=== PATIENT | female | born 1940 | race Caucasian/White ===

== ENCOUNTER → 2023-05-04 13:59 | Outpatient (REF) | payer MEDICARE, SELFPAY | LOC: DHCBS MAIN 13:59 | PROVIDERS: ATTENDING PHYSICIAN Nuclear Medicine Nuclear Cardiology; FAMILY PHYSICIAN Family Medicine | DX: I35.1 Nonrheumatic aortic (valve) insufficiency (principal) | CPT/HCPCS: 93306 ==

== ENCOUNTER → 2023-11-11 13:31 | Outpatient (REF) | payer MEDICARE, SELFPAY | LOC: RCS 13:31 | PROVIDERS: ATTENDING PHYSICIAN Nuclear Medicine Nuclear Cardiology; FAMILY PHYSICIAN Family Medicine | DX: I63.9 Cerebral infarction, unspecified (principal); I35.0 Nonrheumatic aortic (valve) stenosis; I35.1 Nonrheumatic aortic (valve) insufficiency | CPT/HCPCS: 93306 ==

== ENCOUNTER → 2025-02-09 13:50 | Outpatient (REF) | payer MEDICARE, SELFPAY ==
--- NOTE | 2025-02-09 16:09 | CARDSERVDEF ---
Echocardiogram with Definity completed after protocol screening completed. Allergies verified.
Patent IV site: Right forearm 22 G PC inserted by IV team ____
IV site flushed with 0.9% NaCl pre and post administration.
Diluted bolus method utilized to enhance visualization of ventricular simpson.
Total volume given: __3__ mL
Patient tolerated all procedures well without complications.
Heplock D/C ed at 1547, site clear, no redness, no edema. Pressure held for few minutes as pt on anticoagulants. No bleeding, 2x2 applied and taped. Pt offers no complaints.
== END ==
LOC: RCS 13:50
PROVIDERS: ATTENDING PHYSICIAN Nuclear Medicine Nuclear Cardiology; FAMILY PHYSICIAN Family Medicine
DX: I10 Essential (primary) hypertension (principal); I35.0 Nonrheumatic aortic (valve) stenosis; I35.1 Nonrheumatic aortic (valve) insufficiency
CPT/HCPCS: 93306; Q9957